=== PATIENT | female | born 2005 | race Caucasian/White ===

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

== ENCOUNTER 2023-12-28 13:23 | Outpatient (CLI) | payer OTHER, SELFPAY ==
--- NOTE | 2023-12-28 13:32 | US_ITS ---
WS: [id number] EARLY OBSTETRICAL ULTRASOUND (<14 WEEKS). HISTORY: TEST POSITIVE COMPARISON: None available. Single intrauterine gestational sac is identified. Cardiac activity at 169 BPM. [place]-rump length hernando sures 1.9 cm which corresponds to a gestation of 8w3d. Normal-appearing yolk sac and amnion demonstra phill. No subchorionic hemorrhage. No free fluid. Normal size ovaries with no mass. US/US OB <=14 wk fetus w transvag IMPRESSION: 1. Single intrauterine gestation of 8w3d with an EDC of 08/05/2024. 2. Normal embryonic cardiac activity.
== END 2023-12-28 13:24 | disposition home or self-care (01) ==
LOC: RAD 13:23
PROVIDERS: PCP Family Medicine; Visit Provider Family Medicine
DX: Z32.01 Encounter for pregnancy test, result positive (principal); Z36.89 Encounter for other specified antenatal screening
CPT/HCPCS: 76801; 76817